=== PATIENT | male | born 1980 | race Caucasian/White ===

== ENCOUNTER 2018-12-05 07:17 | Emergency (ER) | payer MEDICAID ==
[~2018-12-05] VITALS: Ht 170.2 cm; Wt 115.7 kg
[2018-12-05 07:34] VITALS: BP 113/89
[2018-12-05] MEDS ORDERED: KETOROLAC TROMETH 60MG/2ML VIAL IM ONE (08:45)
== END 2018-12-05 09:39 | disposition home or self-care (01) ==
LOC: ER 07:17
DX: S82.832A Other fracture of upper and lower end of left fibula, initial encounter for closed fracture (principal); J45.909 Unspecified asthma, uncomplicated; Z88.0 Allergy status to penicillin; X50.1XXA Overexertion from prolonged static or awkward postures, initial encounter; Y93.89 Activity, other specified; Y99.8 Other external cause status; Y92.89 Other specified places as the place of occurrence of the external cause
CPT/HCPCS: 29515; 73600; 96372; 99283; J1885